=== PATIENT | female | born 1930 | race Two or more races ===

== ENCOUNTER 2018-10-10 09:08 | Day surgery (SDC) | payer MEDICARE ==
[~2018-10-10 09:08] MED LIST: Acetaminophen TAB* 325 MG PO PRN; Buffered Lidocaine 1% SYRIN* 1 ML/SYRINGE INTRADERM ONE
[2018-10-10] MEDS ORDERED: Midazolam* 1 MG/ML 2 ML VIAL (2 MG) ONE (11:10)
[2018-10-10 12:04] VITALS: BP 132/64
[2018-10-10] MEDS ORDERED: acetaZOLAMIDE TAB* 250 MG ONE (12:14)
[2018-10-10] MEDS ORDERED: Lidocaine 2% EPI 1:200000 MPF*10-20 ML VIAL ONE (12:14)
[2018-10-10] MEDS ORDERED: Cyclopentolate 1% OPTH.SOL* 2 ML BTL ONE (12:14)
[2018-10-10] MEDS ORDERED: Lidocaine 1%* 5 ML VIAL ONE (12:14)
[2018-10-10] MEDS ORDERED: Ketorolac 0.5% OPHTH (NF) 0.5 % 5 ML BTL ONE (12:14)
[2018-10-10] MEDS ORDERED: Povidone Iodine 5% OPTH* 30 ML BTL ONE (12:14)
[2018-10-10] MEDS ORDERED: Neomycin/Polymy/Dex OPTH.SUSP* MAXITROL 0.1% 5 ML ONE (12:14)
[2018-10-10] MEDS ORDERED: Phenylephrine 2.5% OPTH.SOL* 2 ML BTL ONE (12:14)
[2018-10-10] MEDS ORDERED: Proparacaine 0.5% OPHTH.SOL* 15 ML BTL ONE (12:14)
--- NOTE | 2018-10-10 16:35 | OP ---
DATE OF OPERATION: 10/10/18 - [facility] DATE OF : [birth year] SURGEON: Roshan Jacob M.D. PREOPERATIVE DIAGNOSIS: Cataract, right eye. POSTOPERATIVE DIAGNOSIS: Cataract, right eye. OPERATIVE PROCEDURE: Extracapsular cataract extraction with intraocular lens implant, right eye. DESCRIPTION OF PROCEDURE: The patient was brought to the operating room after being given 1/2% Alcaine with epinephrine drops in the preoperative area. The eye was prepped and draped in the usual sterile fashion. Sterile drape and eyelid speculum were placed. Again, topical 1/2% Alcaine with epinephrine was given. A paracentesis incision was made at the 9 o'clock position with the No.75 blade. Clear cornea incision 2.2 x 2.2-mm was created at the 12 o'clock position starting at the anterior limbus using the 2.2-mm keratome. The anterior chamber was irrigated with 0.4 mL of 1% non-preservative intracameral lidocaine and filled with DisCoVisc. A capsulorrhexis was completed using the cystotome and the Utrata forceps. Hydrodissection was performed with balanced salt solution. The lens nucleus was removed with the Phacoemulsification handpiece without incident. Cortex was removed with the irrigation-aspiration handpiece. The capsular bag was re-inflated using DisCoVisc and an SN60WF 18.5 implant was inserted with the shooter. The irrigation-aspiration handpiece was used to remove all residual DisCoVisc. The eye was refilled with balanced salt solution and the wound checked and found to be watertight. Topical Maxitrol drops were given. [id number]/[facility] #: [id number] MTDD
== END 2018-10-10 11:58 | disposition home or self-care (01) ==
LOC: MERGE 09:08 → OREAST 09:08
PROVIDERS: ATTEND Specialist
DX: H25.811 Combined forms of age-related cataract, right eye (principal); H35.3132 Nonexudative age-related macular degeneration, bilateral, intermediate dry stage; I10 Essential (primary) hypertension; Z95.0 Presence of cardiac pacemaker; I35.1 Nonrheumatic aortic (valve) insufficiency; N05.2 Unspecified nephritic syndrome with diffuse membranous glomerulonephritis
CPT/HCPCS: A9270-GY; J2250; V2632

== ENCOUNTER 2019-01-20 16:42 | Emergency (ER) | payer MEDICARE ==
[2019-01-20 17:45] VITALS: BP 140/68
--- NOTE | 2019-01-20 17:54 | UC ---
Head Injury HPI - HPI Summary HPI Summary: PATIENT WALKS WITH A CANE AT BASELINE HOWEVER TODAY WAS NOT USING HER CANE WHILE AMBULATING IN THE HOUSE. FELL AND STRUCK THE BACK OF HER HEAD ON THE [place] FLOOR ABOUT 20 MINUTES TERRA [employer]OT[employer]KER. NO LOC. SHE DENIES ANY HEADACHE, NAUSEA, VISUAL DISTURBANCE. COMES IN WITH A LARGE HEMATOMA ON THE BACK OF HER HEAD. PATIENT'S HOME AND PCP ARE IN [place]. SHE IS HERE IN [place] WITH FAMILY AFTER FALLING AND BREAKING HER ELBOW IN JUNE 2018. HAS NOT ESTABLISHED WITH PRIMARY CARE IN THE AREA. TAKES A BABY ASPIRIN DAILY. - History Of Current Complaint Chief Complaint: UCHeadInjury Stated Complaint: FELL HIT HEAD LUMP Time Seen by Provider: 01/20/19 17:09 Hx Obtained From: Patient Onset/Duration: Sudden Onset, Lasting Minutes, Still Present Severity Currently: Mild Severity Initially: Mild Pain Intensity: 0 Pain Scale Used: 0-10 Numeric Aggravating Factor(s): Nothing Alleviating Factor(s): Nothing Associated Signs And Symptoms: Negative: LOC (Time In Secs./Mins/Hrs), Confusion , Memory Loss, Seizure, Neck Pain, Nausea, Vomiting - Allergies/Home Medications Allergies/Adverse Reactions: Allergies Allergy/AdvReac Type Severity Reaction Status Date / Time amoxicillin Allergy Unknown Verified 01/20/19 17:09 Reaction Details dextrose 5 % in water Allergy Unknown Verified 01/20/19 17:09 [From Zyvox] Reaction Details epinephrine Allergy RAPID Verified 01/20/19 17:09 HEART BEAT linezolid [From Zyvox] Allergy Unknown Verified 01/20/19 17:09 Reaction Details PMH/Surg Hx/FS Hx/Imm Hx Cardiovascular History: Hypertension - Surgical History Surgical History: Yes Surgery Procedure, Year, and Place: LEFT EYE CATARACT REPAIRED. TONSILLECTOMY. HYSTERECTOMY. CYSTS REMOVED FROM BOTH BREASTS - Family History Known Family History: Positive: Non-Contributory - Social History Alcohol Use: None Substance Use Type: None Smoking Status (MU): Never Smoked Tobacco Have You Smoked in the Last Year: No Review of Systems All Other Systems Reviewed And Are Negative: Yes Constitutional: Positive: Negative Skin: Positive: Bruising - SCALP HEMATOMA Respiratory: Positive: Negative Cardiovascular: Positive: Negative Gastrointestinal: Positive: Negative Neurological: Positive: Negative Physical Exam Triage Information Reviewed: Yes Appearance: Well-Appearing, No Pain Distress, Well-Nourished Vital Signs: Initial Vital Signs Temp 98.7 F 01/20/19 16:58 Pulse 65 01/20/19 16:58 Resp 16 01/20/19 16:58 BP 140/68 01/20/19 16:58 Pulse Ox 95 01/20/19 16:58 Vital Signs Reviewed: Yes Eyes: Positive: Conjunctiva Clear ENT: Positive: Hearing grossly normal, Pharynx normal, TMs normal Neck: Positive: Supple Respiratory: Positive: No respiratory distress, No accessory muscle use Cardiovascular: Positive: Pulses Normal Abdomen Description: Positive: Soft Musculoskeletal: Positive: No Edema Neurological: Positive: Alert, Muscle Tone Normal, Other: - CN II-XII GROSSLY INTACT BILATERALLY. NEG PRONATOR DRIFT. 5/5 STRENGTH. HEEL TO IYER INTACT BILATERALLY. FINGER TO NOSE INTACT. Psychological: Positive: Age Appropriate Behavior Skin: Positive: Other - 7CM HEMATOMA POSTERIOR SCALP. Negative: Rashes Head Injury Course/Dx - Course Course Of Treatment: OTHER THAN LARGE SCALP HEMATOMA PATIENT'S EXAM IS NORMAL. NEURO ASSESSMENT INTACT HOWEVER GIVEN HER AGE AND THE NATURE OF HER INJURY CT SCAN IS RECOMMENDED. THIS SERVICE IS NOT AVAILABLE IN THE URGENT CARE AT THIS TIME SHE WILL GO TO THE [facility] [place] BY PRIVATE CAR. DR. LOPES NOTIFIED. - Differential Dx/Diagnosis Provider Diagnosis: Traumatic hematoma of scalp - Physician Notification/Consults Discussed Patient Care With: Mary Lou Lopes - TO [facility] BY PRIVATE CAR Time Discussed With Above Provider: 17:30 Instructed by Provider To: MD Will See In ED Discharge - Sign-Out/Discharge Documenting (check all that apply): Patient Departure All imaging exams completed and their final reports reviewed: No Studies - Discharge Plan Condition: Stable Disposition: [facility] Patient Education Materials: Scalp Contusion in Adults (ED), Hematoma (ED) Referrals: Joanie Moya MD [Primary Care Provider] - Additional Instructions: GO DIRECTLY TO THE [facility] FROM HERE FOR FURTHER EVALUATION. I RECOMMEND YOU HAVE A CT SCAN OF YOUR HEAD TO ENSURE NO INTRACRANIAL ABNORMALITY OR BONY INJURY. YOU HAVE DECLINED TRANSFER TO THE ED BY AMBULANCE. BE ADVISED THAT BY NOT TRAVELING IN A MONITORED SETTING YOU COULD BE RISKING WORSENING OF YOUR CONDITION THAT COULD POSE A THREAT TO YOUR LIFE, HEALTH AND MEDICAL SAFETY - Billing Disposition and Condition Condition: STABLE Disposition: [facility] Fac
== END 2019-01-20 17:43 | disposition short-term general hospital (02) ==
LOC: UCEAST 16:42
DX: S00.03XA Contusion of scalp, initial encounter (principal); W18.30XA Fall on same level, unspecified, initial encounter; Y92.9 Unspecified place or not applicable; I10 Essential (primary) hypertension
CPT/HCPCS: 99212; G0463

== ENCOUNTER 2019-01-20 18:17 | Emergency (ER) | payer MEDICARE ==
[2019-01-20 19:38] LABS: ABS Basophils 0.1 10^3/ul (0-0.2); ABS Eosinophils 0.1 10^3/ul (0-0.6); ABS Lymphocytes 1.3 10^3/ul (1.0-4.8); ABS Monocytes 0.7 10^3/ul (0-0.8); ABS Neutrophils 4.6 10^3/ul (1.5-7.7); Eosinophil % 1.5 %; Hematocrit 37 % (35-47); Hemoglobin 12.3 g/dL (12.0-16.0); Lymphocyte % 19.1 %; Mean Corpuscular HGB Conc 34 g/dL (31-36); Mean Corpuscular Hemoglobin 32 pg (27-31); Mean Corpuscular Volume 94 fL (80-97); Mean Platelet Volume 8.3 fL (7.4-10.4); Platelet Count 204 10^3/uL (150-450); Red Blood Count 3.91 10^6 /uL (3.70-4.87); Red Cell Distribution Width 13 % (10-15); White Blood Count 6.7 10^3/uL (3.5-10.8)
[2019-01-20 19:47] LABS: Activated Partial Thrombo Time 37.2 seconds (26.0-38.0); INR 1.03 (0.82-1.09)
[2019-01-20 19:55] LABS: Albumin 3.8 g/dL (3.2-5.2); Albumin/Globulin Ratio 1.4 (1-3); BUN/Creatinine Ratio 33.3 (8-20); Calcium 9.6 mg/dL (8.6-10.3); EGFR African American 92.3 (>60); EGFR Non-African American 76.3 (>60); Globulin 2.8 g/dL (2-4); Potassium 4.1 mmol/L (3.5-5.0); Total Bilirubin 0.4 mg/dL (0.2-1.0); Total Protein 6.6 g/dL (6.4-8.9)
--- NOTE | 2019-01-20 20:27 | ED ---
Head Injury - HPI Summary HPI Summary: Pt is an 88 y/o F presenting to the ED with a chief complaint of head injury. She was [place] [facility] [place] after a mechanical fall today , and further evaluation of a 7cm hematoma on the posterior aspect of the skull. She takes Aspirin daily, but is not on any other anticoagulants. She is from [place], but is here in [place] living with family since she has had more frequent falls. The fall happened today in the afternoon, she was walking to sit on the sofa without her walker when she fell onto a wooden floor. She currently c/o pain just on the "bump" in the back of her head. She denies LOC, neck pain or back pain, CP, SOB, trouble walking, MIGUEL, or any extremity pain, or N/V. Sx aggravated by touch of the scalp hematoma. Pt is accompanied by a close family friend. Vital signs in room: HR 67bpm, BP 169/103, SaO2 92% on room air with 21 respirations per minute. Home Medications Medication Instructions Recorded Confirmed Type Aspirin [Aspir-Low] 81 mg PO QAM 09/25/18 01/20/19 History Ca/D3/Mag Ox/Zinc/Manager Of Internal/Anselmo/Bor 1 each PO BID 09/25/18 01/20/19 History [Calcium 600-D3 Plus Caplet] Vit C/E/Zn/Coppr/Lutein/Zeaxan 1 each PO BID 09/25/18 01/20/19 History [Preservision Areds 2 Softgel] - History Of Current Complaint Chief Complaint: EDHeadInjury Stated Complaint: FALL/ HIT HEAD PER CAREGIVER Time Seen by Provider: 01/20/19 20:00 Hx Obtained From: Patient, Family/Assistant Coach - family friend, Other: - [place] Rdz [place] [facility] Mechanism Of Injury: Fall From A Standing Position Onset/Duration: Started Hours Ago, Still Present Onset of Pain: Immediate Severity Currently: Moderate Severity Initially: Moderate Pain Intensity: 5 Pain Scale Used: 0-10 Numeric Location of Head Injury: Occipital Location: Discrete At: - right occipital Character: Dull Aggravating Factor(s): Other: - touch Alleviating Factor(s): Other: - nothing Associated Signs And Symptoms: Bruising Anticoagulant Therapy: ASA - Allergies/Home Medications Allergies/Adverse Reactions: Allergies Allergy/AdvReac Type Severity Reaction Status Date / Time amoxicillin Allergy Unknown Verified 01/20/19 18:29 Reaction Details dextrose 5 % in water Allergy Unknown Verified 01/20/19 18:29 [From Zyvox] Reaction Details epinephrine Allergy RAPID Verified 01/20/19 18:29 HEART BEAT linezolid [From Zyvox] Allergy Unknown Verified 01/20/19 18:29 Reaction Details PMH/Surg Hx/FS Hx/Imm Hx Previously Healthy: Yes Endocrine/Hematology History: Reports: Hx Anticoagulant Therapy - 81mg ASA daily Cardiovascular History: Reports: Hx Hypertension - HX OF IN THE PAST- NO MEDICATION FOR, Hx Pacemaker/ICD - PLACED 2006- BATTERY REPLACED 2015, 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 Respiratory History: Denies: Other Respiratory Problems/Disorders History: Reports: Other Problems/Disorders - CHRONIC glomerulonephritis Musculoskeletal History: Reports: Hx Arthritis, Hx Tendonitis - LEFT ELBOW- EPICONDYLITIS-LIMITED RANGE OF MOTION, Other Musculoskeletal History - DOWAGER HUMP Sensory History: Reports: Hx Cataracts - BILATERAL, Hx Glaucoma - RIGHT EYE Denies: Hx Contacts or Glasses, Hx Hearing Aid Opthamlomology History: Reports: Hx Cataracts - BILATERAL, Hx Glaucoma - RIGHT EYE Denies: Hx Contacts or Glasses Neurological History: Reports: Other Neuro Impairments/Disorders - UNSTEADY ON FEET, frequent falls - Surgical History Surgery Procedure, Year, and Place: LEFT EYE CATARACT REPAIRED. TONSILLECTOMY. HYSTERECTOMY. CYSTS REMOVED FROM BOTH BREASTS. RIGHT CATARACT Hx Anesthesia Reactions: No Infectious Disease History: No Infectious Disease History: Denies: Traveled Outside the [place] in Last 30 Days - Family History Known Family History: Negative: Cardiac Disease, Diabetes - Social History Lives: With Family Alcohol Use: None Substance Use Type: Reports: None Smoking Status (MU): Never Smoked Tobacco Have You Smoked in the Last Year: No Review of Systems Constitutional: Negative Eyes: Negative ENT: Negative Negative: Chest Pain Negative: Shortness Of Breath Negative: Vomiting, Nausea Positive: no symptoms reported Positive: Other - pain on the site of head injury. Negative: Myalgia - extremity pain, neck pain, back pain, Decreased ROM Positive: Bruising Neurological: Negative - LOC Negative: Headache Psychological: Normal All Other Systems Reviewed And Are Negative: Yes Physical Exam - Summary Physical Exam Summary: Appearance: well-appearing, moderate pain distress, well-nourished Skin: Warm, color reflects adequate perfusion, dry Head: 7cm hematoma on the posterior aspect of the skull, tender to touch. Eyes: Conjunctiva clear, PERRL, EOMI, no nystagmus ENT: Normal inspection Neck: Supple, no nodes, no JVD, spines nontender Respiratory: Lungs clear, normal breath sounds, no respiratory distress Cardio: RRR, No murmur, pulses normal, brisk capillary refill Abdomen: Soft, nontender Bowel sounds: Present Musculoskeletal: Strength Intact/ROM intact, no calf tenderness, no edema, no spinal tendernes of thoracic or lumbar spines Psychological: Normal Neuro: Alert, muscle tone normal, no focal deficit Triage Information Reviewed: Yes Vital Signs On Initial Exam: Initial Vitals Temp Pulse Resp BP Pulse Ox 99.3 F 67 16 171/74 95 01/20/19 18:23 01/20/19 18:23 01/20/19 18:23 01/20/19 18:23 01/20/19 18:23 Vital Signs Reviewed: Yes - [place] Coma Scale Best Eye Response: 4 - Spontaneous Best Motor Response: 6 - Obeys Commands Best Verbal Response: 5 - Oriented Coma Scale Total: 15 Diagnostics - Vital Signs Vital Signs Temp Pulse Resp BP Pulse Ox 01/20/19 20:00 70 25 92 01/20/19 19:44 71 14 179/102 92 01/20/19 19:43 82 92 01/20/19 18:23 99.3 F 67 16 171/74 95 - Laboratory Lab Results: Lab Results 01/20/19 01/20/19 01/20/19 Range/Units 19:31 19:31 19:31 WBC 6.7 (3.5-10.8) 10^3/uL RBC 3.91 (3.70-4.87) 10^6 /uL Hgb 12.3 (12.0-16.0) g/dL Hct 37 (35-47) % MCV 94 (80-97) fL MCH 32 H (27-31) pg MCHC 34 (31-36) g/dL RDW 13 (10-15) % Plt Count 204 (150-450) 10^3/uL MPV 8.3 (7.4-10.4) fL Neut % (Auto) 68.5 % Lymph % (Auto) 19.1 % Mckean % (Auto) 10.2 % Eos % (Auto) 1.5 % Baso % (Auto) 0.7 % Absolute Neuts (auto) 4.6 (1.5-7.7) 10^3/ul Absolute Lymphs (auto) 1.3 (1.0-4.8) 10^3/ul Absolute Monos (auto) 0.7 (0-0.8) 10^3/ul Absolute Eos (auto) 0.1 (0-0.6) 10^3/ul Absolute Basos (auto) 0.1 (0-0.2) 10^3/ul Absolute Nucleated RBC 0.0 10^3/ul Nucleated RBC % 0.0 ESR Pending INR (Anticoag Therapy) 1.03 (0.82-1.09) APTT 37.2 (26.0-38.0) seconds Sodium 143 (135-145) mmol/L Potassium 4.1 (3.5-5.0) mmol/L Chloride 111 (101-111) mmol/L Carbon Dioxide 26 (22-32) mmol/L Anion Gap 6 (2-11) mmol/L BUN 24 (6-24) mg/dL Creatinine 0.72 (0.51-0.95) mg/dL Est GFR ( Amer) 92.3 (>60) Est GFR (Non-Af Amer) 76.3 (>60) BUN/Creatinine Ratio 33.3 H (8-20) Glucose 106 H (70-100) mg/dL Calcium 9.6 (8.6-10.3) mg/dL Total Bilirubin 0.40 (0.2-1.0) mg/dL AST 29 (13-39) U/L ALT 33 (7-52) U/L Alkaline Phosphatase 82 (34-104) U/L Total Protein 6.6 (6.4-8.9) g/dL Albumin 3.8 (3.2-5.2) g/dL Globulin 2.8 (2-4) g/dL Albumin/Globulin Ratio 1.4 (1-3) Result Diagrams: 01/20/19 19:31 01/20/19 19:31 Lab Statement: Any lab studies that have been ordered have been reviewed, and results considered in the medical decision making process. - CT Brain CT CT Interpretation Completed By: Radiologist Summary of CT Findings: 1. There is right parieto-occipital scalp contusion. 2. No acute intracranial pathology. ED physician has reviewed this report. - EKG 185 Cardiac Rate: NL - 65 EKG Rhythm: Sinus Rhythm ST Segment: Non-Specific Ectopy: PACs - one Summary of EKG Findings: An EKG at 1856 shows SR at 65bpm, nml RJ CT, nml QTc , and nml axis. Non-specific changes, no STEMI, and no prior. ED MD has reviewed and interpreted this EKG. Re-Evaluation - Re-Evaluation First Eval Re-Evaluation Time: 20:30 Change: Unchanged - Discussed with pt and friend results of labs and CT. They voice no questions and agree to discharge. Pt given a copy of her CT results. Pt is advised to take medication for pain when she gets home, to help with BP that is elevated. Pt declined twice to accept any pain medication in the ED. Head Injury Course/Dx Course Of Treatment: Nurse's notes reviewed. Pt's medications reviewed this visit. Allergies reviewed. High blood pressure noted. Pt is an 88 y/o F presenting to the ED with a chief complaint of head injury. She was [place] [facility] [place] a mechanical [place], and has a 7cm hematoma on the posterior aspect of the skull. She takes Aspirin daily, but is not on any other anticoagulants. She is from [place], but is now here in [place] with family after frequent falls, for more care. She currently c/o pain just on the bump. She denies neck pain, back pain, CP, SOB, trouble walking, MIGUEL, LOC, any extremity pain, or N/V. Vital signs in room: HR 67bpm, BP 169/103, SaO2 92% on room air with 21 respirations per minute. Pts lab results show MCH of 32, BUN/ Creatinine ratio of 33.3, otherwise normal. Pt's physical exam is nml aside from the 7cm hematoma on the posterior aspect of her skull. Brain CT shows: 1. There is right parieto-occipital scalp contusion. 2. No acute intracranial pathology. An EKG at 1856 shows SR at 65bpm, nml RJ CT, nml QTc, and nml axis. Non-specific changes, one PAC, no STEMI, and no prior. ED MD has reviewed and interpreted this EKG. Pt will be d/c'ed with dx including closed head injury and scalp hematoma and HTN in poor control. She is stable and agreeable with this plan. - Diagnoses Differential Diagnosis/HQI/PQRI: Cerebral Contusion, Concussion Without LOC, Contusion, Hematoma, Intracranial Bleed, Skull Fracture Provider Diagnoses: Scalp hematoma, Closed head injury, Hypertension, poor control, Frequent falls Discharge - Sign-Out/Discharge Documenting (check all that apply): Patient Departure - home Patient Received Moderate/Deep Sedation with Procedure: No - Discharge Plan Condition: Stable Disposition: HOME Patient Education Materials: Head Injury (ED), Hematoma (ED) Referrals: Joanie Moya MD [Primary Care Provider] - 2 Days Additional Instructions: We have given you a copy of your head CT and there are no abnormalities. Have follow up with your doctor, and return to the ER if you have any new or worsening symptoms. - Billing Disposition and Condition Condition: STABLE Disposition: Home - Attestation Statements Document Initiated by Scribe: Yes Documenting Scribe: Ange Chiang Provider For Whom Ana is Documenting (Include Credential): Dr. Mary Lou Lopes MD. Scribe Attestation: Ange Horan scribed for Dr. Mary Lou Lopes MD. on 01/21/19 at 0130. Scribe Documentation Reviewed: Yes Provider Attestation: The documentation as recorded by the scribeAnge accurately reflects the service I personally performed and the decisions made by , Dr. Mary Lou Lopes MD. Status of Scribe Document: Viewed
[2019-01-20 20:34] LABS: Erythrocyte Sed Rate 14 mm/Hr (0-29)
[2019-01-20 21:25] VITALS: BP 174/100
== END 2019-01-20 21:25 | disposition home or self-care (01) ==
LOC: ED 18:17
DX: S00.03XA Contusion of scalp, initial encounter (principal); I10 Essential (primary) hypertension; Z91.81 History of falling; Z79.82 Long term (current) use of aspirin; W19.XXXA Unspecified fall, initial encounter
CPT/HCPCS: 36415; 70450; 80053; 85025; 85610; 85652; 85730; 93005; 99283